=== PATIENT | female | born 2000 | race Two or more races ===

== ENCOUNTER 2025-10-02 20:38 | Emergency (ER) | payer MEDICAID, SELFPAY ==
[2025-10-02 20:39] VITALS: BMI 23.9
[2025-10-02 20:58] VITALS: BP 134/85; PULSE 81; RESP 18; TEMP 37.4; O2SAT 98
--- NOTE | 2025-10-02 20:59 | EDNOTE_ITS ---
ED Abdominal Pain RME/HPI General Chief Complaint: Abdominal Pain Stated complaint: ABD PAIN Time seen by provider: 10/02/25 20:44 Arrival date/time: 10/02/25 20:38 RME / HPI RME / HPI narrative: See [facility] for Dr. Curtis's HPI Documentation. Related Data Previous Rx's ?Medication ?Instructions ?Recorded ibuprofen 600 mg tablet 600 mg PO Q6H PRN pain #14 t abs 02/29/20 acetaminophen 300 mg-codeine 30 mg 2 tab PO Q8H PRN pa in #20 tabs 10/03/25 tablet ondansetron 4 mg disintegrating 4 mg PO TID PRN nausea and 10/03/25 tablet vomiting 30 days #10 tabs hydrocodone 5 mg-acetaminophen 325 1 tab PO Q8H PRN pa in 1 week #21 10/04/25 mg tablet tabs Allergies Allergy/AdvReac Type Severity Reaction Status Date / Time No Known Allergies Allergy Verified 10/05/25 12:42 Review of Systems Review of Systems Systems Reviewed: All systems reviewed, normal except as documented Past Medical History Social History SUBSTANCE USE: marijuana ED Exam Narrative Physical exam: See [facility] for Dr. Curtis's Physical Exam Documentation. Course Quality Measures none Orders Category Date Time Status Saline [Insert IV] NOW Care 10/02/25 20:59 Completed US gall bladder Stat Exams 10/02/25 21:00 Completed Amylase Stat Lab 10/02/25 21:40 Completed Bilirubin,Direct Stat Lab 10/02/25 21:40 Completed CBC Stat Lab 10/02/25 21:40 Completed CMP [Comprehensive Metabolic Panel] Stat Lab 10/02/25 21:40 Completed HCG,Qualitative Serum Stat Lab 10/02/25 21:40 Completed Lipase Stat Lab 10/02/25 21:40 Completed Magnesium Stat Lab 10/02/25 21:40 Completed UA, C/S IF [Urinalysis, C/S if Indicated] Stat Lab 10/02/25 22:09 Completed Famotidine Inj [Pepcid Inj] Med 10/02/25 20:59 Discontinued 20 mg IVP X1 ONE HYDROmorphone INJ [Dilaudid Inj] Med 10/03/25 00:25 Discontinued 1 mg IVP X1 ONE Ketorolac Inj [Toradol Inj] Med 10/02/25 20:59 Discontinued 30 mg IVP X1 ONE Morphine* Inj Med 10/02/25 20:59 Discontinued 4 mg IV X1 ONE Ondansetron Inj [Zofran Inj] Med 10/02/25 20:59 Discontinued 4 mg IVP X1 ONE Ondansetron Inj [Zofran Inj] Med 10/03/25 00:25 Discontinued 4 mg IVP X1 ONE POTASSIUM CHL 10% Liq 15 ML Med 10/02/25 22:58 Discontinued 40 meq PO X1 ONE Pantoprazole Inj [Protonix Inj] Med 10/02/25 20:59 Discontinued 40 mg IVP X1 ONE Ringers Lactated 1000 ml [Lactated Ringers] 1,000 ml Med 10/03/25 00:25 Discontinued IV 1,000 mls/hr Sodium Chloride 0.9% 1000 ml [Ns] 1,000 ml Med 10/02/25 20:59 Discontinued IV 999 mls/hr Vital Signs Vital signs: Vital Signs Temperature 99.4 F 10/02/25 20:58 Pulse Rate 81 10/02/25 20:58 Respiratory Rate 18 10/02/25 20:58 Blood Pressure 134/85 H 10/02/25 20:58 Pulse Oximetry (%) 98 10/02/25 20:58 Oxygen Delivery Method Room Air 10/02/25 20:58 Abdominal Pain MDM MDM Narrative MDM Narrative:: This section includes all my notes and documentations, including HPI, PE, and ED course. Jakub Curtis MD HPI: 25 y/o female with Hx of Marijuana use presents with severe epigastric pain s/p drinking wine last night. No other complaints. ROS: All negative except as documented in HPI. Physical Exam: General: Alert and oriented. No acute distress when remaining still. Eyes: Conjunctivae and lids clear. ENT: No nasal congestion. Neck: Supple. Heart: RRR. Lungs: No respiratory distress. Good air movement. No rhonchi, wheezing, rales. Abdomen: Soft with epigastric tenderness. Normal bowel sounds. No distension. No rebound or guarding. Back: No CVA tenderness. Skin: Warm and dry. Neuro: Alert and oriented X 3. I reviewed all diagnostic test results: My review of the Gall Bladder US report is: 7 mm gallbladder ball. Blood/urine tests remarkable for K 3.2. At this point, diagnoses include: Gallbladder Sludge Hypokalemia Treatment here included: Pepcid 20 mg and Protonix 40 mg IV prior to diagnostic tests (no improvement noted) IVF Toradol 30 mg IV Morphine 4 mg IV Zofran 4 mg IV Hortencia KCl 40 meq Dilaudid 1 mg IV She felt much better. Recommended more outpatient care. Based on my best medical judgment, made decision no further evaluation or treatment indicated at this time. Patient understands and agrees to the discharge instructions customized and printed, see below. Discharge Instructions from Dr. Curtis: 1. After evaluation, your symptoms are due to 7 mm sludge in your gallbladder.? You need gallbladder to help digest fatty foods. 2. So to prevent future attacks, avoid all fatty and oily and greasy and buttery and dairy foods.? This usually means take out and fast food restaurants. 3. Zofran for nausea/vomiting.? Tylenol with codeine for severe pain.? Clear liquid diet for 24 hours then advance diet slowly as tolerated. 4. See a private doctor on 10/04/2025 for recheck and further care. Ask for help seeing a general surgeon to discuss elective surgery. 5. Seek immediate medical care with intolerable pain, fever, or with any concerns. Jakub Curtis MD Patient data External records reviewed:: [facility] previous records (Reviewed prior ED records from 09/09/22. Patient was seen for Abdominal pain, acute.) Clinical information provided by:: patient Social determinants that could affect healthcare access:: alcohol use (& marijuana use) Patient has the following chronic illnesses:: None reported How is presenting disease/condition affected by chronic disease/condition?: no chronic disease Evaluation data The following diagnostics were reviewed and interpreted by me:: lab results and radiology exam(s) Lab and/or radiology exams considered but not ordered:: None Interpretation Summary: I reviewed all diagnostic test results: My review of the Gall Bladder US report is: 7 mm gallbladder ball. Blood/urine tests remarkable for K 3.2. Medications / Prescriptions Medications or Prescriptions considered but not ordered:: None Medication administrations:: Medication Administration History Discontinued Medications Famotidine (Famotidine Inj 10 Mg/Ml Vial 2 Ml) 20 mg IVP X1 ONE Stop: 10/02/25 21:00 Last Admin: 10/02/25 21:40 Dose: 20 mg Documented By: EE Hydromorphone HCl (Hydromorphone Inj 2 Mg/Ml Vial) 1 mg IVP X1 ONE Stop: 10/03/25 00:26 Last Admin: 10/03/25 00:43 Dose: 1 mg Documented By: UGO Sodium Chloride (Ns) 1,000 mls @ 999 mls/hr IV .Q1H1M ONE Stop: 10/02/25 21:59 Last Infusion: 10/02/25 23:23 Dose: Infused Documented By: Admin: 10/02/25 21:40 Dose: 999 mls/hr Documented By: RUSTY Lactated Ringer's (Lactated Ringers) 1,000 mls @ 1,000 mls/hr IV .Q1H ONE Stop: 10/03/25 01:24 Last Admin: 10/03/25 00:42 Dose: Not Given Documented By: UGO Non-Admin Reason: Patient Refused Ketorolac Tromethamine (Ketorolac Inj 30 Mg/Ml Vial) 30 mg IVP X1 ONE Stop: 10/02/25 21:00 Last Admin: 10/02/25 21:39 Dose: 30 mg Documented By: EE Morphine Sulfate (Morphine Sulf Inj 4 Mg/Ml Vial) 4 mg IV X1 ONE Stop: 10/02/25 21:00 Last Admin: 10/02/25 21:40 Dose: 4 mg Documented By: RUSTY Ondansetron HCl (Ondansetron Inj 2 Mg/Ml Inj 2 Ml) 4 mg IVP X1 ONE; Protocol Stop: 10/02/25 21:00 Last Admin: 10/02/25 21:39 Dose: 4 mg Documented By: EE Ondansetron HCl (Ondansetron Inj 2 Mg/Ml Inj 2 Ml) 4 mg IVP X1 ONE; Protocol Stop: 10/03/25 00:26 Last Admin: 10/03/25 00:43 Dose: 4 mg Documented By: UGO Pantoprazole Sodium (Pantoprazole Inj 40 Mg Vial) 40 mg IVP X1 ONE Stop: 10/02/25 21:00 Last Admin: 10/02/25 21:40 Dose: 40 mg Documented By: RUSTY Potassium Chloride (Potassium Chloride 10% 20 Meq/15 Ml Udc) 40 meq PO X1 ONE Stop: 10/02/25 22:59 Last Admin: 10/02/25 23:21 Dose: 40 meq Documented By: MARY Treatment here included: Pepcid 20 mg and Protonix 40 mg IV prior to diagnostic tests (no improvement noted) IVF Toradol 30 mg IV Morphine 4 mg IV Zofran 4 mg IV Hortencia KCl 40 meq Dilaudid 1 mg IV Consultations Consultation(s) initiated? (list below): No Diagnosis Differential diagnosis abdominal pain: constipation, pancreatitis and other (Cholecystitis, Cholelithiasis, GERD, PUD, GASTRITIS) Most likely diagnosis given after review of the tests above:: Gallbladder Sludge Admission Indicated Admission indicated?: not indicated Explain why admission is indicated or not indicated:: With significant improvement and no condition needing emergent intervention, there was no indication for admission. Admission Request Was there a request for admission?: No Disposition Plan Disposition Plan: Discharge Discharge Attestation Discharge Attestation: The patient and all family members were given an opportunity to ask questions and understood the discharge instructions. Discharge instructions specifically effects, indications for sooner follow up or return to the emergency department, and the expected course of current diagnosis. Patient condition: Stable Discharge Plan Plan Patient Disposition: HOME (Self Care) Prescriptions/Referrals Prescriptions/Med Rec: New acetaminophen-codeine 300-30 mg tablet 2 tab PO Q8H MDD 6 PRN (Reason: pain) Qty: 20 0RF ondansetron 4 mg tablet,disintegrating 4 mg PO TID PRN (Reason: nausea and vomiting) 30 Days Qty: 10 0RF No Action ibuprofen 600 mg tablet 600 mg PO Q6H PRN (Reason: pain) Qty: 14 0RF hydrocodone-acetaminophen 5-325 mg tablet 1 tab PO Q8H MDD hydrocodone 15mg PRN (Reason: pain) 7 Days Qty: 21 0RF Referrals: No Primary/Family,Physician [Primary Care Provider] - In 1 week Problem List Clinical Impression: Gallbladder sludge Patient/Caregiver Discharge Instructions Discharge Activity: activity as tolerated Education Materials: ED Gallstones with Biliary Colic Additional Instructions: Discharge Instructions from Dr. Curtis: 1. After evaluation, your symptoms are due to 7 mm sludge in your gallbladder.? You need gallbladder to help digest fatty foods. 2. So to prevent future attacks, avoid all fatty and oily and greasy and buttery and dairy foods.? This usually means take out and fast food restaurants. 3. Zofran for nausea/vomiting.? Tylenol with codeine for severe pain.? Clear liquid diet for 24 hours then advance diet slowly as tolerated. 4. See a private doctor on 10/04/2025 for recheck and further care. Ask for help seeing a general surgeon to discuss elective surgery. 5. Seek immediate medical care with intolerable pain, fever, or with any concerns. Print Language: Indonesian Stand Alone Forms: [employer]a Award Info., Patient Portal Info Letter
--- NOTE | 2025-10-02 21:00 | XR_ITS ---
Examination: Abdomen sonogram, Limited Date and time of exam: October 02, 2025, 11:07 p.m. INDICATIONS: Epigastric pain beginning 2 days ago Technique: Real-time ruff scale transabdominal sonographic images of the upper abdomen obtained. Findings: 7 mm sludge ball No gallstones Normal gallbladder wall Normal common bile duct 0.1 cm Pancreatic head 1.9 cm Liver 15.9 cm no focal liver lesions Normal hepatopetal portal venous flow Patent IVC IMPRESSION: 7 mm gallbladder sludge ball, negative for cholelithiasis, negative for cholecystitis
[2025-10-02 21:22] VITALS: BP 119/87; PULSE 75; RESP 18; TEMP 37.2; O2SAT 97
[2025-10-02] MEDS: KETOROLAC INJ 30 MG/ML VIAL IVP (21:39)
[2025-10-02] MEDS: ONDANSETRON INJ 2 MG/ML INJ 2 ML 4 MG IVP (21:39)
[2025-10-02] MEDS: MORPHINE SULF INJ 4 MG/ML VIAL IV (21:40)
[2025-10-02] MEDS: SODIUM CHLORIDE 0.9% 1000 ML 1,000 ML 999 ML IV (21:40)
[2025-10-02] MEDS: FAMOTIDINE INJ 10 MG/ML VIAL 2 ML 20 MG IVP (21:40)
[2025-10-02 21:58] LABS: Basophils # (Auto) 0.0 Thou/mm3 (0.0-0.2); Basophils % (Auto) 0 % (0-2.5); Eosinophils # (Auto) 0.0 Thou/mm3 (0.0-0.5); Eosinophils % (Auto) 0 % (0-10); Hematocrit 41.1 % (36.0-46.0); Hemoglobin 14.2 g/dL (12.0-16.0); Immature Granulocytes Auto 0.01 Thou/mm3 (0.00-0.00); Lymphocytes # (Auto) 0.9 Thou/mm3 (1.0-4.8); Lymphocytes % (Auto) 12 % (10-50); Mean Corpuscular HGB Conc 34.5 g/dl (31.0-37.0); Mean Corpuscular Hemoglobin 30.5 pg (25.0-35.0); Mean Corpuscular Volume 88 fL (80-100); Monocytes # (Auto) 0.2 Thou/mm3 (0.0-0.8); Monocytes % (Auto) 3 % (0-12); Neutrophils # (Auto) 6.4 Thou/mm3 (1.8-7.7); Neutrophils % (Auto) 85 % (37-80); Nucleated Red Blood Cell # 0.00 Thou/mm3 (0.00-0.00); Nucleated Red Blood Cell % 0 /100 WBC (0); Platelet Count 252 Thou/mm3 (140-440); RDW Standard Deviation 37.8 fL (36.4-46.3); Red Blood Count 4.65 Miln/mm3 (4.00-5.20); White Blood Count 7.6 Thou/mm3 (3.6-11.0)
[2025-10-02 22:19] LABS: Collection Type, Urine Clean Catch
[2025-10-02 22:19] LABS: Alanine Aminotransferase 12 U/L (10-49); Albumin, Serum 5.1 gm/dL (3.5-5.0); Albumin/Globulin Ratio 2.0 (1.2-2.2); Alkaline Phosphatase 57 U/L (46-116); Amylase 86 U/L (30-118); Anion Gap 11 (7-16); Aspartate Amino Transferase 24 U/L (0-34); BUN/Creatinine Ratio 9 Ratio (12-20); Bilirubin,Direct 0.2 mg/dL (0.0-0.3); Bilirubin,Total 0.7 mg/dL (0.3-1.2); Blood Urea Nitrogen 7 mg/dL (9-23); Calcium 9.6 mg/dL (8.3-10.6); Calcium (Corrected) 9.6 mg/dL (8.5-10.1); Carbon Dioxide 25.2 mMol/L (20.0-31.0); Chloride 104 mMol/L (98-107); Creatinine (Component) 0.8 mg/dL (0.6-1.3); Estimated Creatinine Clearance 89.7 mL/min (>60); Globulin 2.6 gm/dL (2.3-3.5); Glucose 127 mg/dL (74-106); Lipase 24 U/L (12-53); Magnesium 1.9 mg/dL (1.6-2.6); Osmolality,Calculated 279 (275-295); Potassium 3.2 mMol/L (3.4-5.1); Sodium 140 mMol/L (136-145); Total Protein 7.7 gm/dL (5.7-8.2); eGFR > 60 See Note
[2025-10-02 22:30] LABS: Bacteria,Urine Rare; Bilirubin,Urine Negative (Negative); Blood,Urine 1+ (Negative); Clarity,Urine Turbid (Clear/Hazy); Color,Urine Yellow (Lt Yel-Yel); Culture Indicated,Urine Contaminated; Glucose, Urine Negative (Negative); Ketones,Urine 3+ (Negative); Leukocyte Esterase,Urine Negative (Negative); Nitrite,Urine Negative (Negative); PH,Urine 7.0 (5.0-7.0); Protein,Urine 1+ (Neg - Trace); RBC,Urine 4 /hpf (0-3); Specific Gravity,Urine 1.025 (1.001-1.035); Squamous Epithelial Cell,Urine 62 /hpf (0-5); Urobilinogen,Urine Negative mg/dL (0.0-1.0); WBC,Urine 11 /hpf (0-5)
[2025-10-02 22:34] LABS: HCG,Qualitative Serum Negative
[2025-10-02] MEDS: POTASSIUM CHLORIDE 10% 20 MEQ/15 ML UDC 40 MEQ PO (23:21)
[2025-10-02 23:53] VITALS: BP 139/83; PULSE 73; RESP 18; TEMP 36.7; O2SAT 97
[2025-10-03] MEDS: HYDROmorphone INJ 2 MG/ML VIAL 1 MG IVP (00:43)
[2025-10-03] MEDS: ONDANSETRON INJ 2 MG/ML INJ 2 ML 4 MG IVP (00:43)
[2025-10-03 00:47] VITALS: BP 135/96; PULSE 72; RESP 18; O2SAT 98
== END 2025-10-03 00:48 | disposition home or self-care (01) ==
PROVIDERS: Emergency Provider Emergency Medicine
DX: K82.8 Other specified diseases of gallbladder (principal)
CPT/HCPCS: 36415; 76705; 80053; 81001; 82150; 82248; 83690; 83735; 84703; 85025; 96361; 96374; 96375; 96376; 99284; J1171; J1885; J2270; J2405; J2470; J3490; J7030; A9270

== ENCOUNTER 2025-10-04 06:39 | Emergency (ER) | payer MEDICAID, SELFPAY ==
[2025-10-04 06:44] VITALS: BP 165/113; PULSE 73; RESP 19; TEMP 36.4; O2SAT 100
[2025-10-04 06:45] VITALS: BMI 23.9
--- NOTE | 2025-10-04 06:50 | XR_ITS ---
Examination: Abdomen sonogram, Limited Date and time of exam: October 04, 2025, 0755 hours INDICATIONS: Right upper abdominal pain and vomiting beginning 3 days ago Technique: Real-time ruff scale transabdominal sonographic images of the upper abdomen obtained. Findings: Gallbladder sludge including sludge ball Normal gallbladder wall Common bile duct 0.2 cm Pancreatic head 1.7 cm Liver 15.2 cm fatty infiltration Normal hepatopetal portal venous Patent IVC IMPRESSION: Gallbladder sludge Negative for cholelithiasis, negative for cholecystitis Normal common bile duct
--- NOTE | 2025-10-04 06:51 | PD.EDRME ---
Rapid Medical Screening Exam [facility] Arrival date/time: 10/04/25 06:39 25-year-old female with no known medical history presents to the emergency room with a chief complaint of 10 out of 10 epigastric and right upper quadrant abdominal pain x 3 days. Patient was seen here 2 days ago and states her pain has significantly improved I have greeted and performed a focused initial assessment of this patient. A comprehensive ED assessment and evaluation of the patient, analysis of all test results, and completion of the medical decision making process will be conducted by additional ED providers. Chief Complaint: Abdominal Pain Time Seen by Provider: 10/04/25 06:47 Vital signs: Vital Signs Temperature 97.5 F 10/04/25 06:44 Pulse Rate 73 10/04/25 06:44 Respiratory Rate 19 10/04/25 06:44 Blood Pressure 165/113 H 10/04/25 06:44 Pulse Oximetry (%) 100 10/04/25 06:44 Oxygen Delivery Method Room Air 10/04/25 06:44 Vital signs reviewed by provider: Yes Exam: 10 out of 10 right upper quadrant and epigastric abdominal pain with palpation Clear bilateral lung sounds Clinical Impression: Cholelithiasis/cholecystitis/cannabinoid hyperemesis syndrome
[2025-10-04] MEDS: HYDROcodone/APAP 5/325 TABLET 1 TAB PO (07:02)
[2025-10-04] MEDS: METOCLOPRAMIDE 5 MG TABLET 10 MG PO (07:02)
[2025-10-04 07:31] LABS: Collection Type, Urine Clean Catch
[2025-10-04 07:39] LABS: Amorphous Crystals,Urine Present (Absent); Bilirubin,Urine Negative (Negative); Blood,Urine 3+ (Negative); Clarity,Urine Turbid (Clear/Hazy); Color,Urine Lt-Yellow (Lt Yel-Yel); Glucose, Urine Negative (Negative); Ketones,Urine Negative (Negative); Leukocyte Esterase,Urine Positive (Negative); Nitrite,Urine Negative (Negative); PH,Urine 7.0 (5.0-7.0); Protein,Urine Negative (Neg - Trace); RBC,Urine 1 /hpf (0-3); Specific Gravity,Urine 1.018 (1.001-1.035); Squamous Epithelial Cell,Urine 27 /hpf (0-5); Urobilinogen,Urine Negative mg/dL (0.0-1.0); WBC,Urine 6 /hpf (0-5)
[2025-10-04 07:40] LABS: HCG Qualitative,Urine Negative
[2025-10-04 07:51] LABS: Basophils # (Auto) 0.0 Thou/mm3 (0.0-0.2); Basophils % (Auto) 0 % (0-2.5); Eosinophils # (Auto) 0.1 Thou/mm3 (0.0-0.5); Eosinophils % (Auto) 1 % (0-10); Hematocrit 41.2 % (36.0-46.0); Hemoglobin 14.2 g/dL (12.0-16.0); Immature Granulocytes Auto 0.02 Thou/mm3 (0.00-0.00); Lymphocytes # (Auto) 2.2 Thou/mm3 (1.0-4.8); Lymphocytes % (Auto) 33 % (10-50); Mean Corpuscular HGB Conc 34.5 g/dl (31.0-37.0); Mean Corpuscular Hemoglobin 30.7 pg (25.0-35.0); Mean Corpuscular Volume 89 fL (80-100); Monocytes # (Auto) 0.4 Thou/mm3 (0.0-0.8); Monocytes % (Auto) 5 % (0-12); Neutrophils # (Auto) 4.1 Thou/mm3 (1.8-7.7); Neutrophils % (Auto) 60 % (37-80); Nucleated Red Blood Cell # 0.00 Thou/mm3 (0.00-0.00); Nucleated Red Blood Cell % 0 /100 WBC (0); Platelet Count 211 Thou/mm3 (140-440); RDW Standard Deviation 37.2 fL (36.4-46.3); Red Blood Count 4.62 Miln/mm3 (4.00-5.20); White Blood Count 6.8 Thou/mm3 (3.6-11.0)
[2025-10-04 08:09] LABS: Alanine Aminotransferase 11 U/L (10-49); Albumin, Serum 4.7 gm/dL (3.5-5.0); Albumin/Globulin Ratio 1.9 (1.2-2.2); Alkaline Phosphatase 59 U/L (46-116); Anion Gap 12 (7-16); Aspartate Amino Transferase 17 U/L (0-34); BUN/Creatinine Ratio 15 Ratio (12-20); Bilirubin,Total 0.6 mg/dL (0.3-1.2); Blood Urea Nitrogen 12 mg/dL (9-23); Calcium 9.4 mg/dL (8.3-10.6); Calcium (Corrected) 9.4 mg/dL (8.5-10.1); Carbon Dioxide 24.7 mMol/L (20.0-31.0); Chloride 105 mMol/L (98-107); Creatinine (Component) 0.8 mg/dL (0.6-1.3); Estimated Creatinine Clearance 89.7 mL/min (>60); Globulin 2.5 gm/dL (2.3-3.5); Glucose 104 mg/dL (74-106); Lipase 32 U/L (12-53); Osmolality,Calculated 282 (275-295); Potassium 3.5 mMol/L (3.4-5.1); Sodium 142 mMol/L (136-145); Total Protein 7.2 gm/dL (5.7-8.2); eGFR > 60 See Note
[2025-10-04] MEDS: ONDANSETRON ODT 4 MG TABRAP PO (08:28)
--- NOTE | 2025-10-04 09:16 | EDNOTE_ITS ---
<Statement entered by Eladia Ceja MD - 10/06/25 17:43> I, Eladia Ceja MD, have reviewed the history, exam, and assessment of the patient. I have evaluated the patient independently and agree with the plan of care documented by [ ]. All diagnostic studies were reviewed and discussed. I confirm the diagnosis as documented by the Resident. I was present during the Medical Decision Making for this patient. The patient's plan of care was created between myself and the Resident and consistent with our discussion of the patient's case. ED General RME/HPI General Chief complaint: Abdominal Pain Stated complaint: ABD PAIN Time Seen by Provider: 10/04/25 06:47 Arrival date/time: 10/04/25 06:39 RME / HPI RME / HPI narrative: 10/04/25 06:39 25-year-old female with no known medical history presents to the emergency room with a chief complaint of 10 out of 10 epigastric and right upper quadrant abdominal pain x 3 days. Patient was seen here 2 days ago and states her pain has significantly improved I have greeted and performed a focused initial assessment of this patient. A comprehensive ED assessment and evaluation of the patient, analysis of all test results, and completion of the medical decision making process will be conducted by additional ED providers. Exam: 10 out of 10 right upper quadrant and epigastric abdominal pain with palpation Clear bilateral lung sounds Impression: Cholelithiasis/cholecystitis/cannabinoid hyperemesis syndrome Related Data Previous Rx's ?Medication ?Instructions ?Recorded ibuprofen 600 mg tablet 600 mg PO Q6H PRN pain #14 t abs 02/29/20 acetaminophen 300 mg-codeine 30 mg 2 tab PO Q8H PRN pa in #20 tabs 10/03/25 tablet ondansetron 4 mg disintegrating 4 mg PO TID PRN nausea and 10/03/25 tablet vomiting 30 days #10 tabs hydrocodone 5 mg-acetaminophen 325 1 tab PO Q8H PRN pa in 1 week #21 10/04/25 mg tablet tabs Allergies Allergy/AdvReac Type Severity Reaction Status Date / Time No Known Allergies Allergy Verified 10/04/25 06:39 ED Exam Narrative Physical exam: Physical Exam: GENERAL: Awake, answering questions appropriately, appears stated age tenderness to palpation right upper quadrant otherwise unremarkable, no HEENT: NC/AT. Moist mucosa. PERRLA/EOMI. CARDIO: Heart RRR, no obvious murmurs, no JVD. PULM: No coughing or visible SOB. Lungs CTA B/L. GI: Abdomen soft, tenderness to palpation right upper quadrant with some guarding, otherwise unremarkable with no rigidity. Borborygmi apparent SKIN/MSK/EXT: No wounds/discoloration/rashes/edema/amputations. +Pedal pulses present B/L. NEURO: Oriented x3, Moves extremities x4, no focal neurologic deficits noted. Course Quality Measures none Orders Category Date Time Status Consult to General Surgery Stat Cons 10/04/25 13:36 Ordered NM HIDA w pharm Stat Exams 10/04/25 12:11 Stop Req US gall bladder Stat Exams 10/04/25 06:50 Completed CBC Stat Lab 10/04/25 07:06 Completed CMP [Comprehensive Metabolic Panel] Stat Lab 10/04/25 07:06 Completed HCG Qualitative,Urine Stat Lab 10/04/25 07:00 Completed Lipase Stat Lab 10/04/25 07:06 Completed UA [Urinalysis] Stat Lab 10/04/25 07:00 Completed Urine Culture Stat Lab 10/04/25 07:08 Received Acetaminophen Ivpb [Ofirmev Inj] Med 10/04/25 13:36 Discontinued 1,000 mg in 100 ml IV X1 HYDROcodone*/APAP 5/325 [Berkeley 5/325] Med 10/04/25 06:50 Discontinued 1 tab PO X1 ONE Ketorolac Inj [Toradol Inj] Med 10/04/25 12:14 Discontinued 10 mg IM X1 ONE Ketorolac Inj [Toradol Inj] Med 10/04/25 10:33 Discontinued 30 mg IM X1 ONE Metoclopramide [Reglan] Med 10/04/25 06:50 Discontinued 10 mg PO X1 ONE Morphine* Inj Med 10/04/25 15:10 Discontinued 4 mg IVP X1 ONE Ondansetron Odt [Zofran Odt] Med 10/04/25 07:55 Discontinued 4 mg PO X1 ONE traMADol HCL [Ultram] Med 10/04/25 13:09 Discontinued 50 mg PO X1 ONE Vital Signs Vital signs: Vital Signs Temperature 97.5 F 10/04/25 06:44 Pulse Rate 73 10/04/25 06:44 Respiratory Rate 19 10/04/25 06:44 Blood Pressure 165/113 H 10/04/25 06:44 Pulse Oximetry (%) 100 10/04/25 06:44 Oxygen Delivery Method Room Air 10/04/25 06:44 Discharge Plan Plan Patient Disposition: HOME (Self Care) Patient condition on transfer: Stable Prescriptions/Referrals Prescriptions/Med Rec: New hydrocodone-acetaminophen 5-325 mg tablet 1 tab PO Q8H MDD hydrocodone 15mg PRN (Reason: pain) 7 Days Qty: 21 0RF No Action ibuprofen 600 mg tablet 600 mg PO Q6H PRN (Reason: pain) Qty: 14 0RF acetaminophen-codeine 300-30 mg tablet 2 tab PO Q8H MDD 6 PRN (Reason: pain) Qty: 20 0RF ondansetron 4 mg tablet,disintegrating 4 mg PO TID PRN (Reason: nausea and vomiting) 30 Days Qty: 10 0RF Referrals: Angie Johns MD [Physician, General Surgery] - In 1 week No Primary/Family,Physician [Primary Care Provider] - In 1 week Problem List Clinical Impression: Gallbladder sludge Patient/Caregiver Discharge Instructions Additional Instructions: Please take Berkeley 5-325 mg by mouth every 8 hours as needed for pain You need surgery with Dr. Johns on Saturday (afternoon) - please call her office to schedule it Follow-up with your primary care provider within the next 3 to 5 days If your symptoms worsen or if you develop new fever/chills, severe abdominal pain or loss of consciousness - please come back to the ER immediately Print Language: Danish Stand Alone Forms: Sandrita Award Info., Patient Portal Info Letter MDM Narrative MDM hospital course (for use when minimal MDM required): HPI: 25-year-old female with past medical history of gallbladder sludge and ch olelithiasis presenting to the ER on 10/04 for persistent right upper quadrant tenderness. Of note, patient recently presented to the ER on 10/02 for similar complaints and was discharged with antiemetics. 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 She notes right upper quadrant tenderness which does not radiate anywhere. She has some associated nausea and vomiting episodes. Her stools have changed in color and are more yellowish and her vomit is bilious in appearance. Her significant other is bedside and corroborated her story, patient is having difficulty p.o. intake and has yet to be seen by general surgeon outpatient for surgery. On examination, please refer to the physical exam above; patient presented to the ER mildly hypertensive 165/113 which has since resolved to 124/84, regular heart rate, respiratory rate of 20, afebrile satting 100 on room air. Pertinent lab findings include unremarkable CBC without any leukocytosis or anemia, CMP does not show any significant findings either with LFTs within normal limits, T. bili 0.6, LFTs within normal limits as well. Urinalysis does show turbid urine with some hematuria pyuria; however, there is elevated squamous epithelial cells signifying contamination. Gallbladder ultrasound does show gallbladder sludge but no cholelithiasis or cholecystitis with normal common bile duct. 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 Johns on Saturday (afternoon) - please call her office to schedule it Follow-up with your primary care provider within the next 3 to 5 days If your symptoms worsen or if you develop new fever/chills, severe abdominal pain or loss of consciousness - please come back to the ER immediately Patient seen and assessed with attending Dr. Ceja. Jose E Katz, PGY-2 Internal Medicine - [facility] Medication Administration(s) Medication Administration History Discontinued Medications Hydrocodone Bitart/Acetaminophen (Hydrocodone/Apap 5/325 Tablet) 1 tab PO X1 ONE Stop: 10/04/25 06:51 Last Admin: 10/04/25 07:02 Dose: 1 tab Documented By: CVRashi Acetaminophen (Ofirmev Inj) 1,000 mg in 100 mls @ 250 mls/hr IV X1 ONE Stop: 10/04/25 13:59 Last Infusion: 10/04/25 15:47 Dose: Infused Documented By: Admin: 10/04/25 14:32 Dose: 250 mls/hr Documented By: SARAH Ketorolac Tromethamine (Ketorolac Inj 30 Mg/Ml Vial) 30 mg IM X1 ONE Stop: 10/04/25 10:34 Last Admin: 10/04/25 10:52 Dose: 30 mg Documented By: ERLIN Ketorolac Tromethamine (Ketorolac Inj 30 Mg/Ml Vial) 10 mg IM X1 ONE Stop: 10/04/25 12:15 Last Admin: 10/04/25 13:06 Dose: 10 mg Documented By: ERLIN Metoclopramide HCl (Metoclopramide 5 Mg Tablet) 10 mg PO X1 ONE Stop: 10/04/25 06:51 Last Admin: 10/04/25 07:02 Dose: 10 mg Documented By: BETHANY Morphine Sulfate (Morphine Sulf Inj 4 Mg/Ml Vial) 4 mg IVP X1 ONE Stop: 10/04/25 15:11 Last Admin: 10/04/25 15:47 Dose: 4 mg Documented By: EL Ondansetron HCl (Ondansetron Odt 4 Mg Tabrap) 4 mg PO X1 ONE; Protocol Stop: 10/04/25 07:56 Last Admin: 10/04/25 08:28 Dose: 4 mg Documented By: SARAH Tramadol HCl (Tramadol Hcl 50 Mg Tablet) 50 mg PO X1 ONE Stop: 10/04/25 13:10 Last Admin: 10/04/25 13:22 Dose: 50 mg Documented By: ERLIN
[2025-10-04 10:39] VITALS: BP 124/84; PULSE 73; RESP 20; TEMP 36.9; O2SAT 100
[2025-10-04] MEDS: KETOROLAC INJ 30 MG/ML VIAL IM (10:52)
[2025-10-04] MEDS: KETOROLAC INJ 30 MG/ML VIAL 10 MG IM (13:06)
[2025-10-04 13:08] VITALS: BP 142/88; PULSE 62; RESP 18; TEMP 36.6; O2SAT 99
[2025-10-04] MEDS: ACETAMINOPHEN IVPB 1,000 MG/100 ML VIAL 250 MG IV (14:32)
--- NOTE | 2025-10-04 15:32 | PD.SURCONS ---
HPI Consult details History of present illness: 25F presenting with abdominal pain and nausea. Patient reports her symptoms first began 3 days ago, with severe pain in the epigastrium, no clear inciting factor. Pain associated with nausea and vomiting, she sought care in ER and was diagnosed with gallbladder sludge. Her pain improved with morphine and she was discharged home, however because the pain and nausea recurred she again sought care in ER today with the same findings of gallbladder sludge, no wall thickening, normal LFTs, no fever or leukocytosis PMH: None PSH: None Meds: None Allergies: NKDA Review of Systems Review of Systems ROS Unobtainable: All systems reviewed & no additional complaints except as documented Meds Home Medications and Allergies Allergies Allergy/AdvReac Type Severity Reaction Status Date / Time No Known Allergies Allergy Verified 10/04/25 06:39 Exam Vital Signs Temp Pulse Resp BP Pulse Ox O2 Del Method 97.9 F 62 18 142/88 H 99 Room Air 10/04/25 13:08 10/04/25 13:08 10/04/25 13:08 10/04/25 13:08 10/04/25 13:08 10/04/25 13:08 Constitutional Constitutional: no acute distress Routine Respiratory Exam Respiratory: Present no resp distress Routine Abdominal Exam Abdominal: Present soft and tenderness (Moderate right upper quadrant tenderness); Absent distended, rebound or guarding Results Results: Laboratory Laboratory results: results reviewed Results: Imaging US - abdomen: report reviewed Assessment & Plan Plan 25F presenting with signs and symptoms of biliary colic. I explained that surgery is recommended to prevent future attacks and enumerated risks including need for conversion to open, bleeding, infection which could require percutaneous drain placement, as well as biliary injury potentially requiring major reconstructive surgery at a tertiary hospital. I also informed of the risks of postoperative hernia and diarrhea. All questions were answered and patient agrees to proceed Will schedule elective cholecystectomy on Saturday, 10/08
[2025-10-04] MEDS: MORPHINE SULF INJ 4 MG/ML VIAL IVP (15:47)
[2025-10-04 16:10] VITALS: BP 139/86; PULSE 63; RESP 14; TEMP 37.1; O2SAT 98
[2025-10-04 16:50] VITALS: BP 126/77; PULSE 66; RESP 15; TEMP 37.1; O2SAT 98
== END 2025-10-04 16:51 | disposition home or self-care (01) ==
PROVIDERS: Nurse Practitioner Family; Emergency Provider Emergency Medicine
DX: K80.10 Calculus of gallbladder with chronic cholecystitis without obstruction (principal); K83.4 Spasm of sphincter of Oddi; R31.9 Hematuria, unspecified; R82.81 Pyuria
CPT/HCPCS: 36415; 76705; 80053; 81001; 81025; 83690; 85025; 87086; 96365; 96372; 96375; 99284; J0131; J1885; J2270; Q0162; A9270

== ENCOUNTER 2025-10-05 12:39 | Emergency (ER) | payer MEDICAID, SELFPAY ==
--- NOTE | 2025-10-05 13:19 | PC.NURSE ---
called for pt from lobby/outside, no answerx1@ [id number]
--- NOTE | 2025-10-05 13:27 | PC.NURSE ---
called for pt from lobby/outside, no answerx2@ [id number]
--- NOTE | 2025-10-05 13:55 | PC.NURSE ---
called for pt from lobby/outside, no answerx3@ 0613
== END 2025-10-05 14:12 | disposition left against medical advice (07) ==
LOC: SERX 13:57
PROVIDERS: Emergency Provider Emergency Medicine
DX: Z53.21 Procedure and treatment not carried out due to patient leaving prior to being seen by health care provider (principal)
CPT/HCPCS: 99281

== ENCOUNTER 2025-10-08 05:30 | Day surgery (SDC) | payer MEDICAID, SELFPAY ==
[2025-10-07 07:31] VITALS: BMI 21.7
[2025-10-07 08:29] LABS: Basophils # (Auto) 0.0 Thou/mm3 (0.0-0.2); Basophils % (Auto) 0 % (0-2.5); Eosinophils # (Auto) 0.0 Thou/mm3 (0.0-0.5); Eosinophils % (Auto) 0 % (0-10); Hematocrit 41.9 % (36.0-46.0); Hemoglobin 15.5 g/dL (12.0-16.0); Immature Granulocytes Auto 0.03 Thou/mm3 (0.00-0.00); Lymphocytes # (Auto) 1.5 Thou/mm3 (1.0-4.8); Lymphocytes % (Auto) 22 % (10-50); Mean Corpuscular HGB Conc 37.0 g/dl (31.0-37.0); Mean Corpuscular Hemoglobin 31.3 pg (25.0-35.0); Mean Corpuscular Volume 85 fL (80-100); Monocytes # (Auto) 0.5 Thou/mm3 (0.0-0.8); Monocytes % (Auto) 7 % (0-12); Neutrophils # (Auto) 5.0 Thou/mm3 (1.8-7.7); Neutrophils % (Auto) 71 % (37-80); Nucleated Red Blood Cell # 0.00 Thou/mm3 (0.00-0.00); Nucleated Red Blood Cell % 0 /100 WBC (0); Platelet Count 262 Thou/mm3 (140-440); RDW Standard Deviation 34.7 fL (36.4-46.3); Red Blood Count 4.96 Miln/mm3 (4.00-5.20); White Blood Count 7.1 Thou/mm3 (3.6-11.0)
[2025-10-07 08:33] LABS: Anion Gap 13 (7-16); BUN/Creatinine Ratio 19 Ratio (12-20); Blood Urea Nitrogen 13 mg/dL (9-23); Calcium 9.3 mg/dL (8.3-10.6); Carbon Dioxide 25.2 mMol/L (20.0-31.0); Chloride 98 mMol/L (98-107); Creatinine (Component) 0.7 mg/dL (0.6-1.3); Estimated Creatinine Clearance 102.5 mL/min (>60); Glucose 115 mg/dL (74-106); Osmolality,Calculated 273 (275-295); Potassium 3.6 mMol/L (3.4-5.1); Sodium 136 mMol/L (136-145); eGFR > 60 See Note
[2025-10-07 08:43] LABS: HCG,Qualitative Serum Negative
[2025-10-07 10:13] LABS: INR 1.1 (0.9-1.3); Partial Thromboplastin Time 28.2 Seconds (22.0-36.0); Prothrombin Time 11.2 Seconds (9.0-12.2)
--- NOTE | 2025-10-07 13:59 | SUR.PREOP ---
Pt notified to come in at 0545 tomorrow for surgery.
[2025-10-08] VITALS (7 sets, daily range): BP systolic 124–141; BP diastolic 89–97; PULSE 69–96; RESP 12–22; TEMP 36.2–36.9; O2SAT 99–100; BMI 20.9
--- NOTE | 2025-10-08 08:19 | PD.SUROPNT ---
Date of Procedure 10/08/25 Pre Op Diagnosis Symptomatic cholelithiasis Post Op Diagnosis Same Procedure Laparoscopic cholecystectomy Findings Normal appearing gallbladder Procedure Description After discussion of risks and benefits, patient was brought to the operating room, SCDs were placed and general anesthesia was induced. She received preoperative antibiotics and was prepped and draped in the usual sterile fashion. After timeout a supraumbilical incision was made with a #11 blade and the skin was elevated with towel clamps. A Veress needle was placed through the incision and proper positioning was confirmed with a drop test. The abdomen was then insufflated to 12 mmHg at which point the Veress needle was exchanged for a 5 mm camera using a Visiport technique. There were no signs of injury from the point of entry. 3 additional ports were placed under direct vision, 112 mm at the epigastrium, one 5 mm right subcostal and one 5 mm right anterior axillary line. Patient was placed in reverse Trendelenburg. The fundus of the gallbladder was grasped and retracted cephalad and the infundibulum was grasped and retracted laterally. The lower third of the gallbladder was removed from the gallbladder bed using electrocautery. The hepatocystic triangle was cleared of all fat and fibrous tissue using blunt dissection. The critical view of safety was achieved and the cystic duct and cystic artery were clipped and transected in the usual fashion. The gallbladder was removed from the gallbladder bed using electrocautery. There was very minimal bleeding of the gallbladder bed which was controlled with electrocautery. The specimen was removed in an Endo Catch bag via the epigastric port and the epigastric fascia was closed with 0 Vicryl suture using a Kemar-Morris. Counts were confirmed correct. Pneumoperitoneum was released and ports were removed under direct vision. Incisions were irrigated and infiltrated with half percent Marcaine for a total of 30 cc. Incisions were closed with 4-0 Monocryl and reinforced with Dermabond. Patient was extubated and brought to PACU in stable condition Pathology / specimen Other (Gallbladder) Estimated Blood Loss 10 Surgeon Angie Johns MD Surgical Staff Operation Date: 10/08/25 07:30 Case Staff Anesthesiologist: Pradeep Velazquez RN First Assistant: Sapphire Stallings
--- NOTE | 2025-10-08 08:21 | ESDS_ITS ---
Planned Discharge Date 10/08/25 DS: Providers Provider Primary care physician: Sis Moncada PA-C Attending Provider on Admission: Angie Johns MD Attending Provider on DC: Angie Johns MD Discharging Provider: Angie Johns MD Diagnosis Discharge Diagnosis (1) Gallbladder sludge: Status: Acute Problem List Completed Was Problem List Reviewed/Reconciled?: Yes Exam Vital Signs Temp Pulse Resp BP Pulse Ox 97.2 F 69 18 124/91 H 99 10/08/25 06:00 10/08/25 06:00 10/08/25 06:00 10/08/25 06:00 10/08/25 06:00 Discharge Plan Plan Patient Disposition: HOME (Self Care) Prescriptions/Referrals Prescriptions/Med Rec: New ibuprofen 600 mg tablet 600 mg PO Q6H PRN (Reason: pain) Qty: 30 0RF Rx Instructions: Take 1 tablet as needed every 6 hours for mild to moderate pain No Action hydrocodone-acetaminophen 5-325 mg tablet 1 tab PO Q8H MDD hydrocodone 15mg PRN (Reason: pain) 7 Days Qty: 21 0RF metoclopramide HCl 10 mg tablet 10 mg PO TID PRN (Reason: nausea and vomiting) pantoprazole 20 mg tablet,delayed release (DR/EC) 20 mg PO DAILY ondansetron 4 mg tablet,disintegrating 4 mg PO TID PRN (Reason: nausea and vomiting) 30 Days Qty: 10 0RF Referrals: Angie Johns MD [Physician, General Surgery] Referral Note: You will receive a message to confirm a follow-up appt with me within 3 weeks Sis Moncada PA-C [Primary Care Provider, Family Practice] Patient/Caregiver Discharge Instructions Other Discharge Activity Instructions:: You may resume showering in 2 days, on 10/10 It is okay to get incisions wet at that time, pat dry after Avoid bathing or swimming for 2 weeks During the surgery we fill your abdomen with a air in order to see the structures. Some of the air tends to linger and cause pain that is referred to the shoulder as well as pain with deep breaths. This will get better with time. Being out of bed and walking helps the air to absorb faster Avoid lifting objects greater than 10 pounds for 6 weeks If you develop worsening pain, nausea/vomiting, fever or signs of jaundice please seek care in ER For any nonemergent concern please feel free to call the office at [phone] during business hours M--F 8-4 PM except 12 to 1 PM Education Materials: After Gallbladder Surgery, Preventing Surgical Site Infections Print Language: Setswana Stand Alone Forms: Sandrita Award Info., Patient Portal Info Letter Discharge Order Discharge Orders: Discharge (Routine); Ordered 10/08/25 Ordered By: Angie Johns Results Results: Laboratory Laboratory results: results reviewed Results: Imaging US - abdomen: report reviewed PROCEDURES: Procedure Date 10/08/25 Procedures Laparoscopic cholecystectomy
--- NOTE | 2025-10-08 08:31 | SUR.PHASEI ---
0831 patient arrived to recovery resting comfortably in [facility], drowsy and talking with staff, tearful-emotional support provided; patient receptive, on oxygen 8L via oxy mask, breathing unlabored, vital signs stable, denies pain and nausea, dressing intact to abdomen; dermabond, no bleeding noted, report received from Dr. Velazquez and Meri BRAUN
--- NOTE | 2025-10-08 09:21 | SUR.PHASEII ---
Addendum entered by Danica Bagley RN 10/08/25 09:46: historic interpreter DeannaID# [id number] Original Note: 0921 Patient meets discharge criteria from recovery, awake and alert, breathing unlabored, vital signs stable, denies pain and nausea, dressing intact; no bleeding noted, eating ice chips; tolerating well, denies nausea, assisted with dressing into her clothing by her mother, discharge instructions given to patient and her mother with the assistance of the telephone interpreter and translator- due to patient mother speaking Welsh, mother signed discharge instructions. Patient given all her belongings prior to discharge, transported via wheelchair and left in a private vehicle.
== END 2025-10-08 09:21 | disposition home or self-care (01) ==
PROVIDERS: PCP Physician Assistant; Referring Provider Surgery; Visit Provider Surgery
PROC: 0FT44ZZ Resection of Gallbladder, Percutaneous Endoscopic Approach (ICD-10-PCS; CPT 47562; principal; 2025-10-08 07:30)
DX: K80.10 Calculus of gallbladder with chronic cholecystitis without obstruction (principal)
CPT/HCPCS: 47562; 36415; 80048; 84703; 85025; 85610; 85730; A4217; A4649; J0131; J0694; J1100; J1885; J2250; J2371; J2405; J2704; J3010; J3490; J1805